=== PATIENT | male | born 1965 | race Caucasian/White ===

== ENCOUNTER 2022-12-28 06:26 | Day surgery (SDC) | payer OTHER ==
[~2022-12-28] VITALS: Ht 172.7 cm; Wt 102.7 kg
[~2022-12-28 06:26] MED LIST: ACET500; AMOX500 PO; Amoxicillin500 MG PO; CITA20 PO; Flonase 0.05% N16 GM; HYDACE5 PO; NEOPOLHCSU OT; Pseudoephedrine30 MG PO
[2022-12-28] MEDS ORDERED: Aspir 8181 MG PO (07:18)
[2022-12-28] MEDS ORDERED: METO25ER PO (07:18)
[2022-12-28] MEDS ORDERED: ATOR20 PO (07:18)
[2022-12-28] MEDS ORDERED: SERT25 PO (07:19)
[2022-12-28] MEDS ORDERED: OMEP20ER PO (07:20)
--- NOTE | 2022-12-28 10:23 | NUR ---
AIR REMOVED FROM R RADIAL TR BAND. NO BLEEDING OR HEMATOMA NOTED. VSS. NADN. PT DENIES QUESTIONS OR CONCERNS. CALL LIGHT WITHIN REACH.
--- NOTE | 2022-12-28 10:52 | NUR ---
PT VERBALIZES UNDERSTANDING WRITTEN AND VERBAL INSTRUCTIONS. DENIES QUESTIONS. PT R RADIAL SITE REMAINS CLEAR. NO BLEEDING OR HEMATOMA NOTED. VSS.
--- NOTE | 2022-12-28 11:20 | NUR ---
PT DRESSES SELF WITHOUT DIFF. VSS. NADN. PT TR BAND REMOVED. NO BLEEDING OR HEMATOMA NOTED. DOT DRESSING APPLIED WITH SPLINT AND SLING. PT IV DC'D. CATH INTACT. PRESSURE DSG APPLIED. PT DC TO HOME VIA FRIEND BY CORINNE.
== END 2022-12-28 11:23 | disposition home or self-care (01) ==
LOC: MHTC 06:26
DX: R07.89 Other chest pain (principal); I25.10 Atherosclerotic heart disease of native coronary artery without angina pectoris; E78.5 Hyperlipidemia, unspecified; I10 Essential (primary) hypertension; F17.200 Nicotine dependence, unspecified, uncomplicated
CPT/HCPCS: 76937; 93458; 99152; 99153; A9270; C1769; C1887; C1894; J1644; J2250; J3010; J7030; J7050; Q9967